=== PATIENT | female | born 1985 | race African-American/Black ===

== ENCOUNTER 2020-09-03 16:23 | Emergency (ER) | payer OTHER ==
[~2020-09-03] VITALS: Ht 165.1 cm; Wt 84.6 kg
[2020-09-03 16:30] VITALS: BP 135/82
--- NOTE | 2020-09-03 17:23 | REP ---
INDICATION: fall, injury. COMPARISON: None. TECHNIQUE: There are three views. FINDINGS: Mineralization is normal. The acromioclavicular and glenohumeral articulations are unremarkable. There is no fracture or dislocation. There no calcifications or foreign bodies. IMPRESSION: Essentially negative right shoulder. <Electronically signed by Rodger Ball > 09/03/20 [id number]
[2020-09-03] MEDS ORDERED: KETOROLAC TROMETHAMINE 10 MG TAB PO ONE (17:45)
[2020-09-03] MEDS ORDERED: IBUP80TA PO (17:46)
== END 2020-09-03 17:59 | disposition home or self-care (01) ==
LOC: M ED 16:23
DX: S43.51XA Sprain of right acromioclavicular joint, initial encounter (principal); W01.0XXA Fall on same level from slipping, tripping and stumbling without subsequent striking against object, initial encounter; Y92.59 Other trade areas as the place of occurrence of the external cause; Y93.68 Activity, volleyball (beach) (court); Y99.9 Unspecified external cause status; R51.9 Headache, unspecified